=== PATIENT | male | born 1975 ===

== ENCOUNTER 2018-06-06 06:55 | Emergency (ER) | payer OTHER ==
[2018-06-06 06:59] VITALS: BMI 26.6
[2018-06-06 07:00] VITALS: O2SAT 98
[2018-06-06] MEDS ORDERED: Sodium Chloride 0.9% 1,000 ML IV STA (07:24)
--- NOTE | 2018-06-06 07:31 | ED PDOC ---
HPI: Abdomen Time Seen by Provider: 06/06/18 07:10 Chief Complaint (Nursing): Abdominal Pain Chief Complaint (Provider): Abdominal Pain History Per: Patient History/Exam Limitations: no limitations Onset/Duration Of Symptoms: Days Current Symptoms Are (Timing): Still Present Location Of Pain/Discomfort: Epigastric Quality Of Discomfort: "Pain" Associated Symptoms: Vomiting, Diarrhea. denies: Fever Additional Complaint(s): 42 year old male with a past medical history of achalasia presents to the ED for an evaluation of abdominal pain onset Tuesday. States the pain is epigastric with associated symptoms of vomiting and diarrhea. Denies nausea, difficulty breathing or fever. PMD: Non [facility] Provider Past Medical History Reviewed: Historical Data, Nursing Documentation, Vital Signs Vital Signs: Last Vital Signs Temp 98.5 F 06/06/18 07:14 Pulse 70 06/06/18 07:14 Resp 19 06/06/18 07:14 BP 128/79 06/06/18 07:14 Pulse Ox 98 06/06/18 07:36 - Medical History PMH: Denies: Kidney Stones, Chronic Kidney Disease Other PMH: Achalasia - Surgical History Surgical History: Endoscopy - Family History Family History: States: Unknown Family Hx - Social History Current smoker - smoking cessation education provided: Yes Alcohol: Social Drugs: Denies - Immunization History Hx Tetanus Toxoid Vaccination: No Hx Influenza Vaccination: No Hx Pneumococcal Vaccination: No - Home Medications Home Medications: Ambulatory Orders Medication Instructions Recorded Ciprofloxacin/Ciprofloxa HCl 500 mg PO BID #14 ter 09/19/15 [Ciprofloxacin] Famotidine [Pepcid] 20 mg PO BID #20 tab 09/19/15 Metronidazole [Flagyl] 500 mg PO TID #21 tab 09/19/15 Ondansetron [Zofran] 4 mg PO Q8H PRN #21 tab 09/19/15 oxyCODONE/Acetaminophen [Percocet 1 ea PO Q6 PRN #12 tab 09/19/15 5/325 mg Tab] Pantoprazole Sodium [Protonix] 40 mg PO DAILY #30 tablet. 06/06/18 - Allergies Allergies/Adverse Reactions: Allergies Allergy/AdvReac Type Severity Reaction Status Date / Time No Known Allergies Allergy Verified 09/19/15 14:20 Review of Systems ROS Statement: Except As Marked, All Systems Reviewed And Found Negative Constitutional: Negative for: Fever Respiratory: Negative for: Shortness of Breath Gastrointestinal: Positive for: Vomiting, Abdominal Pain, Diarrhea. Negative for: Nausea Physical Exam - Reviewed Nursing Documentation Reviewed: Yes Vital Signs Reviewed: Yes - Physical Exam Appears: Positive for: Well, Non-toxic, No Acute Distress Head Exam: Positive for: ATRAUMATIC, NORMAL INSPECTION, NORMOCEPHALIC Skin: Positive for: Normal Color, Warm, Dry Eye Exam: Positive for: Normal appearance ENT: Positive for: Normal ENT Inspection Neck: Positive for: Normal, Painless ROM, Supple. Negative for: Decreased ROM Cardiovascular/Chest: Positive for: Regular Rate, Rhythm. Negative for: Murmur Respiratory: Positive for: Normal Breath Sounds. Negative for: Decreased Breath Sounds, Wheezing, Respiratory Distress Gastrointestinal/Abdominal: Positive for: Normal Exam, Bowel Sounds, Soft. Negative for: Tenderness, Guarding, Rebound Back: Positive for: Normal Inspection Extremity: Positive for: Normal ROM. Negative for: Tenderness, Pedal Edema, Deformity Neurologic/Psych: Positive for: Alert, Oriented (x3). Negative for: Motor/ Sensory Deficits - Laboratory Results Result Diagrams: 06/06/18 07:40 06/06/18 07:40 - ECG O2 Sat by Pulse Oximetry: 98 (RA) Pulse Ox Interpretation: Normal - Progress Re-evaluation Time: 10:07 Condition: Improved Medical Decision Making Medical Decision Making: Time: 722 Initial Impression: epigastric abdominal pain Initial Plan: --CMP --CBC w/ Differential --Normal Saline 150 mls/hr --Pepcid 20mg --Zofran Inj 4mg --Reevaluation Scribe Attestation: Documented by Naveed Dukes, acting as a scribe for Adis Ibarra MD Provider Scribe Attestation: All medical record entries made by the Scribe were at my direction and personally dictated by me. I have reviewed the chart and agree that the record accurately reflects my personal performance of the history, physical exam, medical decision making, and the department course for this patient. I have also personally directed, reviewed, and agree with the discharge instructions and disposition. Disposition - Clinical Impression Clinical Impression: Gastritis - Patient ED Disposition Is Patient to be Admitted: No Counseled Patient/Family Regarding: Studies Performed, Diagnosis, Need For Followup, Rx Given - Disposition [facility]errals: [facility] [Outside] Disposition: Routine/Home Disposition Time: 10:08 Condition: FAIR Prescriptions: Pantoprazole Sodium [Protonix] 40 mg PO DAILY #30 tablet. Instructions: Gastritis Forms: [facility] ([place])
[2018-06-06 07:44] LABS: BASO # 0.1 K/uL (0.0-0.2); BASO % 0.7 % (0.0-2.0); EOS # 0.3 K/uL (0.0-0.7); EOS % 3.3 % (0.0-4.0); MEAN CELL VOLUME 94.9 fl (80.0-94.0); MEAN CORPUSCULAR HEMOGLOBIN 32.5 pg (27.0-31.0); MEAN CORPUSCULAR HGB CONC 34.2 g/dL (33.0-37.0); MEAN PLATELET VOLUME 8.5 fl (7.2-11.7); MONO # 1.3 K/uL (0.0-0.8); MONO % 16.2 % (0.0-10.0); NEUT # 4.6 K/uL (1.8-7.0); NEUT % 55.8 % (50.0-75.0); RBC 3.99 Mil/uL (4.40-5.90); RED CELL DISTRIBUTION WIDTH 13.1 % (11.5-14.5); WHITE BLOOD COUNT 8.3 K/uL (4.8-10.8)
[2018-06-06 07:54] LABS: ALB/GLOB RATIO 1.2 (1.0-2.1); ALT/SGPT 27 U/L (21-72); AST/SGOT 25 U/L (17-59); BLOOD UREA NITROGEN 9 mg/dl (9-20); CALCIUM 8.7 mg/dL (8.4-10.2); GFR AFRICAN-AMERICAN > 60; GFR NON-AFRICAN AMERICAN > 60
[2018-06-06 10:47] VITALS: BP 120/70; PULSE 78; RESP 20; TEMP 98
== END 2018-06-06 10:40 | disposition home or self-care (01) ==
LOC: H.ER 06:55
DX: K29.70 Gastritis, unspecified, without bleeding (principal); F17.200 Nicotine dependence, unspecified, uncomplicated
CPT/HCPCS: 80053; 85025; 96374; 96375; 99283; J2405; J7030